=== PATIENT | female | born 1950 | race African-American/Black ===

== ENCOUNTER 2018-04-30 09:13 | Outpatient (CLI) | payer MEDICARE, OTHER, MEDICAID ==
[~2018-04-30 09:13] MED LIST: ADVAIR 250-501 EACH INH; ALBUTEROL2.5 MG/3 M HHN; AMLODIPINE BESYL5 MG ORAL; AVAPRO150 MG ORAL; AZITHROMYCIN250 MG PO; CEPHALEXIN500 MG ORAL; COLACE100 MG ORAL; DILAUDID4 MG ORAL; DILAUDID8 MG PO; NORVASC5 MG PO; PREDNISONE20 MG PO; SPIRIVA18 MCG INH; VICODIN 5-5001 EACH PO; XANAX0.5 MG PO; XANAX1 MG PO
[2018-04-30] MEDS ORDERED: FENTANYL1 EACH TDERMAL (10:00)
--- NOTE | 2018-04-30 10:12 | GI Progress Note ---
Assessment/Plan Problems: (1) Constipation ICD Codes: K59.00 - Constipation, unspecified SNOMED: 60381476 (2) Abdominal pain ICD Codes: R10.9 - Unspecified abdominal pain SNOMED: 04907597 (3) Helicobacter pylori gastritis ICD Codes: B96.81 - Helicobacter pylori gastritis SNOMED: 639220627 (4) DM (diabetes mellitus) ICD Codes: E11.9 - DM (diabetes mellitus) SNOMED: 72181520 (5) Chronic pain ICD Codes: G89.29 - Chronic pain SNOMED: 23640118 Status: stable Status Narrative Seen with Dr. Carreno. Assessment/Plan Trial Movantik given, prescription written. EGD/colonoscopy to be scheduled once patient agrees, patient will contact us when she is ready. - CLD & (Nulytely/Suprep/Movi-Prep) prep instructions given and acknowledged by patient. - NPO @ [place] day prior procedure explained. Will follow with additional recs post procedure. The patient was seen and examined at bedside and all new and available data was reviewed in the patients chart. I agree with the above findings, impression and plan. (Patient seen earlier today. Signature stamp does not reflect patient encounter time.). - Oswaldo Carreno MD Subjective Subjective Patient has complaint of left lower quadrant pain Constipated, stated her last BM was April 29 and noted as reddish History of H. pylori infection An emergency room visit last Sunday, due to severe abdominal pain and nausea vomiting. Cannot wait at [facility] therefore she left. Objective Temperature 98.8 Blood pressure 167/90 Pulse 81 94% room air Weight 258 pounds General Appearance: WD/WN, no apparent distress, alert Cardiovascular: normal rate Respiratory/Chest: normal breath sounds, no respiratory distress Abdominal Exam: normal bowel sounds, non tender, soft Extremities: normal range of motion, non-tender Irina Bridges [employer]TER HELPER Apr 30, 2018 10:11
[2018-04-30 14:33] VITALS: BP 167/90
== END 2018-04-30 09:43 | disposition home or self-care (01) ==
LOC: PAN 09:13
DX: K59.00 Constipation, unspecified (principal); R10.9 Unspecified abdominal pain; B96.81 Helicobacter pylori [H. pylori] as the cause of diseases classified elsewhere; E11.9 Type 2 diabetes mellitus without complications; G89.29 Other chronic pain
CPT/HCPCS: 99202

== ENCOUNTER → 2018-05-21 | Outpatient (CLI) | payer MEDICARE, OTHER, MEDICAID ==
[~2018-05-21] MED LIST changes: +FENTANYL1 EACH TDERMAL
--- NOTE | 2018-05-21 16:28 | Diagnostic Imaging Report ---
Indication: Cough Technique: 2 views of the chest Comparison: One view chest 12/10/2014 Findings: Lungs and pleural spaces are clear. The heart size is normal. The bones demonstrate degenerative spondylosis changes No significant interim change. Impression: No acute process
== END | disposition home or self-care (01) ==
LOC: RAD 13:38
DX: Z01.818 Encounter for other preprocedural examination (principal); I10 Essential (primary) hypertension; R05 Cough
CPT/HCPCS: 71046

== ENCOUNTER 2018-05-27 08:11 | Day surgery (SDC) | payer MEDICARE, OTHER, MEDICAID ==
[~2018-05-27] VITALS: Ht 167 cm; Wt 68.0 kg
[2018-05-27] VITALS (8 sets, daily range): BP systolic 135–155; BP diastolic 76–89
[2018-05-27] MEDS ORDERED: AVAPRO150 MG ORAL (09:44)
--- NOTE | 2018-05-27 09:53 | Anethesia Preoperative Eval ---
Anesthesia Pre-op PMH/ROS General Date of Evaluation: May 27, 2018 Time of Evaluation: 09:51 Anesthesiologist: tawny ASA Score: ASA 3 Mallampati Score Class I : Soft palate, uvula, fauces, pillars visible Class II: Soft palate, uvula, fauces visible Class III: Soft palate, base of uvula visible Class IV: Only hard plate visible Mallampati Classification: Class II Surgeon: Wai Diagnosis: Abdominal pain Surgical Procedure: EGD Colonoscopy Anesthesia History: none Family History: no anesthesia problems Allergies: Coded Allergies: CAPTOPRIL (Verified Allergy, Severe, 11/28/13) SWELLING PENICILLINS (Verified Allergy, Unknown, 04/24/11) IBUPROFEN (Verified Adverse Reaction, Intermediate, 11/18/13) vomiting Uncoded Allergies: CRAB (Allergy, Unknown, 05/27/18) ITCHING RASH Medications: see eMAR Patient NPO?: Yes Past Medical History Cardiovascular: Reports: HTN; Denies: CAD, [place], valve dz, arrhythmia, other Pulmonary: Denies: asthma, COPD, DEVONTE, other Gastrointestinal/Genitourinary: Reports: GERD; Denies: CRI, ESRD, other Neurologic/Psychiatric: Denies: dementia, CVA, depression/anxiety, TIA, other Endocrine: Denies: DM, hypothyroidism, steroids, other HEENT: Denies: cataract (L), cataract (R), glaucoma, [place] POSTA (L), LA POSTA (R), other Hematology/Immune: Denies: anemia, DVT, bleeding disorder, other Musculoskeletal/Integumentary: Denies: OA, RA, DJD, DDD, edema, other PMH Narrative: as above PSxH Narrative: See H&P Anesthesia Pre-op Phys. Exam Physician Exam Last Vital Signs Date Time Temp Pulse Resp B/P (MAP) Pulse Ox O2 Delivery O2 Flow Rate FiO2 05/27/18 09:04 Room Air Constitutional: NAD Neurologic: CN 2-12 intact Cardiovascular: RRR, no M/R/G Respiratory: CTA Gastrointestinal: S/NT/ND Airway Exam Mallampati Score: Class II MO: full Neck: flexible ROM: full Teeth: missing Dentures: no upper, no lower Anesthesia Pre-op A/P Risk Assessment & Plan Assessment: ASA 2 Plan: Wicho Markham MD May 27, 2018 09:53
--- NOTE | 2018-05-27 09:57 | Pre-Procedure Note/Attestation ---
Pre-Procedure Note/Attestation Complete Prior to Procedure Planned Procedure: not applicable Procedure Narrative: esophagogastroduodenoscopy and colonoscopy Indications for Procedure Pre-Operative Diagnosis: screening, GERD Attestation I attest that I discussed the nature of the procedure; its benefits; risks and complications; and alternatives (and the risks and benefits of such alternatives ), prior to the procedure, with the patient (or the patient's legal billing customer service representative). I attest that, if there was a reasonable possibility of needing a blood transfusion, the patient (or the patient's legal billing customer service representative) was given the [facility] standardized written summary, pursuant to the [place] Blood Safety Act ([place] Health and Safety Code # 1645, as amended). I attest that I re-evaluated the patient just prior to the surgery and that there has been no change in the patient's H&P, except as documented below: Oswaldo Carreno MD May 27, 2018 09:57
--- NOTE | 2018-05-27 09:58 | Short Stay Surgery H&P ---
History of Present Illness History of Present Illness Chief Complaint see recent office notes HPI Boyd Munoz is a 67 year old female who was admitted on for Constipation, Abdominal Pain Patient History Allergies: Coded Allergies: CAPTOPRIL (Verified Allergy, Severe, 11/28/13) SWELLING PENICILLINS (Verified Allergy, Unknown, 04/24/11) IBUPROFEN (Verified Adverse Reaction, Intermediate, 11/18/13) vomiting Uncoded Allergies: CRAB (Allergy, Unknown, 05/27/18) ITCHING RASH Medication History Scheduled Albuterol Sulfate* (Albuterol Sulfate Hhn*), 2.5 MG HHN PRN, (Reported) Alprazolam* (Xanax*), 1 TAB PO TID, (Reported) Amlodipine Besylate* (Amlodipine Besylate*), 5 MG ORAL BID, (Reported) Fentanyl 25MCG Patch* (Fentanyl 25MCG Patch*), 1 PATCH TDERMAL EVERY 72 HOURS, ( Reported) Fluticasone/Salmeterol (Advair 250-50 Diskus), 1 PUFF INH EVERY 12 HOURS, ( Reported) Irbesartan* (Avapro*), 150 MG ORAL DAILY, (Reported) Tiotropium Nesmith* (Spiriva*), 1 PUFF INH DAILY, (Reported) Scheduled PRN Hydromorphone HCl (Dilaudid), 4 MG ORAL TID PRN for For Pain, (Reported) Physical Exam Vital Signs Last Vital Signs Date Time Temp Pulse Resp B/P (MAP) Pulse Ox O2 Delivery O2 Flow Rate FiO2 05/27/18 09:04 Room Air Plan Attestation Are the patient's medical conditions optimized for surgery? Oswaldo Carreno MD May 27, 2018 09:58
[2018-05-27] MEDS ORDERED: fentaNYL 100 mcg/2 mL IV ONE (10:00)
[2018-05-27] MEDS ORDERED: Propofol 200mg/20ml IV ONE (10:00)
[2018-05-27] MEDS ORDERED: Midazolam 2mg/2ml Inj ONE (10:00)
[2018-05-27] MEDS ORDERED: fentaNYL 100 mcg/2 mL IV PRN (10:45)
[2018-05-27] MEDS ORDERED: DiphenhydrAMINE 50mg/ml Inj IVP PRN (10:45)
--- NOTE | 2018-05-27 10:58 | Immediate Post-Op Evaluation ---
Immediate Post-Op Evalulation Immediate Post-Op Evalulation Procedure: EGD Colonoscopy Date of Evaluation: May 27, 2018 Time of Evaluation: 10:57 IV Fluids: 500 Blood Products: none Estimated Blood Loss: none Urinary Output: none Blood Pressure Systolic: 154 Blood Pressure Diastolic: 72 Pulse Rate: 87 Respiratory Rate: 22 O2 Sat by Pulse Oximetry: 99 Temperature (Fahrenheit): 97.6 Pain Score (1-10): 1 Nausea: No Vomiting: No Complications none Patient Status: reacts, patent, none Hydration Status: adequate Wicho Pruitt MD May 27, 2018 10:58
--- NOTE | 2018-05-27 11:00 | 48 Hour Post Anesthesia Eval ---
Post Anesthesia Evaluation Procedure: EGD Colonoscopy Date of Evaluation: May 27, 2018 Time of Evaluation: 11:50 Blood Pressure Systolic: 148 0: 73 Pulse Rate: 86 Respiratory Rate: 24 Temperature (Fahrenheit): 97.8 O2 Sat by Pulse Oximetry: 98 Airway: patent Nausea: No Vomiting: No Pain Intensity: 2 Hydration Status: adequate Cardiopulmonary Status: stable Mental Status/LOC: patient returned to baseline Follow-up Care/Observations: n/a Post-Anesthesia Complications: none Follow-up care needed: ready to discharge Wicho Pruitt MD May 27, 2018 11:00
--- NOTE | 2018-05-27 11:11 | Endoscopy Procedure Note ---
Endoscopy Procedure Note General Indication for Procedure: screening colon, GERD Procedures Performed: EGD, colonoscopy Operative Findings/Diagnosis: multiple polyps, gastritis Specimen: yes Pt Tolerated Procedure Well: Yes Estimated Blood Loss: none Anesthesia Anesthesiologist: curt Anesthesia: MAC Inserted Devices Implant(s) used?: No Quality Quality of Bowel Preparation: Good Did scope reach the cecum?: Yes Was there any complications?: No GI Core Measures 50 yrs or older w/o bx or poly: No 10yrs. F/U not recommended: Yes If not recommended, why?: Above average risk 10 yrs. F/U needed: Yes 18 years or older w/prev. colo: Yes <3yrs. since last colonoscopy: No Oswaldo Carreno MD May 27, 2018 11:11
--- NOTE | 2018-05-27 16:00 | Procedure Note ---
DATE OF PROCEDURE: 05/27/2018 PROCEDURE: Upper endoscopy with biopsy and colonoscopy with polypectomy. ANESTHESIA: Per Dr. Wicho Pruitt. INSTRUMENT: Olympus adult flexible upper endoscope and colonoscope. INDICATION: Screening colonoscopy evaluation and chronic abdominal pain. REASON FOR PROCEDURE: The procedure, risks, benefits, and possible consequences, including hemorrhage, aspiration, perforation and infection, and alternative treatments, were explained to the patient/legal guardian by Dr. Oswaldo Carreno and the patient/legal guardian understood and accepted these risks. DESCRIPTION OF PROCEDURE: After informed consent was obtained and the patient was adequately sedated, Olympus upper scope was advanced from the mouth to the second portion of the duodenum and retroflexion was performed in the stomach. The patient had diffuse gastritis. Random biopsies from antrum and body was obtained to rule out H. pylori infection. At this time, the upper endoscope was retrieved and the patient was turned over for colonoscopy. First, rectal exam was performed, which was normal. Then, the scope was advanced from rectum into the cecum documented by appendiceal orifice, ileocecal valve, and right upper quadrant palpation. Quality of prep was good. The patient had one diminutive polyp in the cecum, which was removed with the cold biopsy forceps technique. The patient had three hyperplastic-looking polyps in the sigmoid colon, which was removed with cold biopsy forceps technique. The patient had numerous hyperplastic polyps taken in the rectosigmoid area, 3 or 4 of them were biopsied. These are all hyperplastic looking. The patient had some scattered diverticulosis in the left colon. Retroflexion of rectum showed evidence of small nonbleeding internal hemorrhoids. SUMMARY OF FINDINGS: 1. Gastritis, status post biopsy. 2. Scattered diverticulosis. 3. Multiple polyps removed, most of them are hyperplastic looking. See above for details. 4. Internal hemorrhoids. RECOMMENDATIONS: 1. Follow up pathology. 2. We recommend repeat colonoscopy in three years given these number of polyps. I want to thank Dr. Diego Levy for this kind referral. Oswaldo Carreno M.D. DR: LANETTE JOB#: [id number] CC: Diego Levy M.D.; Fax#: [phone]
--- NOTE | 2018-05-28 13:28 | Cardiology Report ---
APPROVED REPORT EKG Measurement Heart [id number] Normal sinus rhythm Normal ECG
== END 2018-05-27 12:00 | disposition home or self-care (01) ==
LOC: GAS 08:11
DX: Z12.11 Encounter for screening for malignant neoplasm of colon (principal); D12.0 Benign neoplasm of cecum; K63.5 Polyp of colon; K57.30 Diverticulosis of large intestine without perforation or abscess without bleeding; K64.8 Other hemorrhoids; K29.70 Gastritis, unspecified, without bleeding; B96.81 Helicobacter pylori [H. pylori] as the cause of diseases classified elsewhere; I10 Essential (primary) hypertension; M19.90 Unspecified osteoarthritis, unspecified site; G47.33 Obstructive sleep apnea (adult) (pediatric); J44.9 Chronic obstructive pulmonary disease, unspecified; G31.84 Mild cognitive impairment of uncertain or unknown etiology; E11.9 Type 2 diabetes mellitus without complications; M79.7 Fibromyalgia; K21.9 Gastro-esophageal reflux disease without esophagitis; F39 Unspecified mood [affective] disorder; E11.319 Type 2 diabetes mellitus with unspecified diabetic retinopathy without macular edema; R27.0 Ataxia, unspecified; F17.200 Nicotine dependence, unspecified, uncomplicated; Z88.8 Allergy status to other drugs, medicaments and biological substances; Z88.6 Allergy status to analgesic agent; Z88.0 Allergy status to penicillin; Z91.013 Allergy to seafood
CPT/HCPCS: 43239; 45380; 82962; 93005; J2250; J2704; J3010; 94003; 94150

== ENCOUNTER → 2018-07-12 | Outpatient (CLI) | payer MEDICARE, OTHER, MEDICAID ==
--- NOTE | 2018-07-12 11:09 | Diagnostic Imaging Report ---
Indication: Cough Technique: PA and lateral views of the chest Comparison: 05/21/2018 Findings: Right size and mediastinal contours are within normal limits and stable compared to the prior exam. There is no focal airspace consolidation. No pleural effusion or pneumothorax. No evidence to suggest pulmonary edema. There is a approximately 10 mm rounded nodular density projecting over the right lower lung seen only on frontal view which may represent a nipple shadow. Repeat exam with nipple markers recommended. Degenerative changes in the spine. No acute osseous abnormality identified. Impression: No radiographic evidence of acute cardiopulmonary disease. Specifically no focal airspace consolidation as questioned clinically. 10 mm rounded nodular density projecting over the right lower lung which may represent a nipple shadow versus pulmonary nodule. Repeat exam with nipple markers recommended.
== END | disposition home or self-care (01) ==
LOC: RAD 10:27
DX: J02.9 Acute pharyngitis, unspecified (principal); R05 Cough; R91.1 Solitary pulmonary nodule
CPT/HCPCS: 71046

== ENCOUNTER 2018-07-24 12:51 | Outpatient (CLI) | payer MEDICARE, OTHER, MEDICAID ==
[2018-07-24 13:30] VITALS: BP 131/71
--- NOTE | 2018-07-24 13:54 | General Progress Note ---
Assessment/Plan Problem List: (1) DM (diabetes mellitus) ICD Codes: E11.9 - DM (diabetes mellitus) SNOMED: 29699602 (2) Chronic pain ICD Codes: G89.29 - Chronic pain SNOMED: 40317122 (3) Helicobacter pylori gastritis ICD Codes: B96.81 - Helicobacter pylori gastritis SNOMED: 479041366 (4) Constipation ICD Codes: K59.00 - Constipation, unspecified SNOMED: 30848125 (5) Diverticulosis ICD Codes: K57.90 - Dvrtclos of intest, part unsp, w/o perf or abscess w/o bleed SNOMED: 715404770 (6) HTN (hypertension) ICD Codes: I10 - HTN (hypertension) SNOMED: 55133514 (7) Anxiety ICD Codes: F41.9 - Anxiety; F48.9 - Nonpsychotic mental disorder, unspecified SNOMED: 43229276 (8) COPD with acute exacerbation ICD Codes: J44.1 - Chronic obstructive pulmonary disease with (acute) exacerbation SNOMED: 220107904 Assessment/Plan: 7 polyps>> repeat colon 3 years trial of bentyl 25 mg treat for HP, Quatro therapy RTC 3 months for BT Subjective ROS Limited/Unobtainable: Yes Allergies: Coded Allergies: CAPTOPRIL (Verified Allergy, Severe, 11/28/13) SWELLING PENICILLINS (Verified Allergy, Unknown, 04/24/11) IBUPROFEN (Verified Adverse Reaction, Intermediate, 11/18/13) vomiting Uncoded Allergies: CRAB (Allergy, Unknown, 05/27/18) ITCHING RASH Objective General Appearance: alert EENT: normal ENT inspection Neck: supple Cardiovascular: normal rate Respiratory/Chest: lungs clear Abdomen: normal bowel sounds, non tender, soft Extremities: non-tender Oswaldo Carreno MD July 24, 2018 13:54
== END 2018-07-24 15:55 | disposition home or self-care (01) ==
LOC: PAN 12:51
DX: K59.00 Constipation, unspecified (principal); E11.9 Type 2 diabetes mellitus without complications; G89.29 Other chronic pain; B96.81 Helicobacter pylori [H. pylori] as the cause of diseases classified elsewhere; K57.90 Diverticulosis of intestine, part unspecified, without perforation or abscess without bleeding; I10 Essential (primary) hypertension; F41.9 Anxiety disorder, unspecified; J44.1 Chronic obstructive pulmonary disease with (acute) exacerbation; Z88.0 Allergy status to penicillin; Z88.6 Allergy status to analgesic agent; Z91.013 Allergy to seafood